=== PATIENT | male | born 1945 | race Caucasian/White ===

== ENCOUNTER 2017-05-11 08:11 | Emergency (ER) | payer OTHER ==
[~2017-05-11] VITALS: Ht 188 cm; Wt 90.4 kg
[~2017-05-11 08:11] MED LIST: AMIO200T4 PO; ASPCH81X PO; LISI-729 PO; METH5TAB5; METO25TA56 PO; WARF7.5T4 PO
[2017-05-11 08:18] VITALS: TEMP 36.7; Ht 188 cm; Wt 90.4 kg
[2017-05-11] MEDS ORDERED: ONDANSETRON INJ 2 MG/ML 2 ML VIAL IM STA (09:00)
[2017-05-11] MEDS ORDERED: MoRPHine SULFATE 4 MG/ML 1 ML CARP\\VIAL IM PRN (09:00)
--- NOTE | 2017-05-11 09:56 | DIAGNOSTIC IMAGING REPORT ---
THORACIC SPINE 3 VIEWS CLINICAL HISTORY: Thoracic back pain. FINDINGS: AP, lateral, and swimmer's views of the thoracic spine are obtained. No prior studies are available for comparison at the time of dictation. The skeletal structures are osteopenic. There is no radiographic evidence of fracture or malalignment. Vertebral body height and alignment are maintained throughout the thoracic spine. There are flowing anterior osteophytes with calcification of the anterior longitudinal ligament consistent with DISH. The transverse processes and pedicles are grossly intact as seen on the frontal view. Mild multilevel degenerative disc space narrowing is observed. The lung parenchyma is clear as imaged. IMPRESSION: 1. No acute bony abnormality is identified involving the thoracic spine. 2. Osteopenia with degenerative change and evidence of DISH as above. Electronically signed by: Loco Paula M.D. 05/11/2017 9:54 AM Dictated Date/Time: 05/11/2017 9:52 AM
[2017-05-11] MEDS ORDERED: HYDR-5688 PO (10:32)
[2017-05-11 10:45] VITALS: BP 124/88; PULSE 80; O2SAT 97
--- NOTE | 2017-05-13 07:11 | EMERGENCY ROOM VISIT NOTE ---
History First contact with patient: 08:33 Chief Complaint: PAIN (GENERALIZED) Stated Complaint: PAIN IN BACK,NECK,ARM History of Present Illness The patient is a 72 year old white male who presents to the Emergency Room with complaints of upper back pain and right shoulder pain that started approximately a week ago. He states initially started in his neck. He thought that it was slowly getting better but became acutely worse yesterday afternoon. He states he could not sleep last night. He thinks he had similar discomfort in 2013 when he had a ruptured disc in his low back. He states he has all of the same symptoms as then. He tried Tylenol and icy hot without significant improvement. There is no trauma. No known injury. His accompanies him today. Pain is 9/10. No chest pain. No abdominal pain. He denies any numbness in his arm. He does complain of some tingling intermittently that extends to his fingers. Review of Systems REVIEW OF SYSTEM: HEENT: No dizziness, visual problems, hearing loss, or tinnitus. There is no difficulty swallowing and no oral lesions are present. PULMONARY: No cough, shortness of breath, sputum production or hemoptysis. CARDIOVASCULAR: No chest pain, palpitations, shortness of breath or peripheral edema. GASTROINTESTINAL: No diarrhea, constipation, nausea, vomiting, or abdominal pain. GENITOURINARY: No dysuria, frequency, urgency or nocturia. NEUROLOGIC: No weakness, muscle tenderness, epilepsy or history of neurological problems. MUSCULOSKELETAL: No history of joint tenderness/swelling. No history of arthritis or arthralgias. SKIN: No rashes or lesions. ENDOCRINE: No history of diabetes, thyroid disorders, or abnormal hair growth. Past Medical/Surgical History Medical Problems: (1) Atrial fibrillation (2) Facial surgery (3) Heart disease (4) HTN (hypertension) Family History FH: cancer FH: heart disease Hypertension Social History Smoking Status: Former Smoker Smokeless Tobacco Use: No Alcohol Use: occasionally Marital Status: Housing Status: lives with significant other Occupation Status: employed Current/Historical Medications Scheduled Aspirin (Aspirin Chewable), 81 MG PO DAILY Lisinopril (Zestril), 5 MG PO QAM Metoprolol Tartrate (Lopressor) (Lopressor), 25 MG PO BID Warfarin Sod (Jantoven), 7.5 MG PO WK Warfarin Sod (Jantoven), 0.5 TAB PO [id number] Scheduled PRN Hydrocodone/Acetaminophen 5MG/325MG ([place] 5MG/325MG), 1-2 TABLET PO Q6 PRN for Pain Allergies Coded Allergies: Prednisone (Verified Allergy, Intermediate, SHORTNESS OF BREATH, 05/11/17) as per patient after steriod shot Physical Exam Vital Signs Date Time Temp Pulse Resp B/P (MAP) Pulse Ox O2 Delivery O2 Flow Rate FiO2 05/11/17 10:45 80 18 124/88 97 05/11/17 10:05 78 18 116/83 97 Room Air 05/11/17 08:18 36.7 88 18 137/88 95 Room Air Pain Rating (0-10): 6.0 Physical Exam Gen.: Well-developed, well-nourished, elderly white male, in obvious discomfort. No acute distress. Sitting on a bed. Alert and oriented. Skin: Warm and dry with good turgor. No rashes or lesions. No ecchymosis or erythema. The patient is not diaphoretic. No abrasions. Heart: Heart RRR. No MGR. Peripheral pulses are 2+. Lungs: Lungs are clear to auscultation. No crackles rhonchi or wheezing. Good air movement. The patient is able to take a deep breath. Musculoskeletal: Patient has focal discomfort with palpation over his upper thoracic spine. There appears to be a slight malrotation of the spinous process at around T5. This may also be localized muscle spasm. He has multiple focal trigger points across the trapezius muscle on the right as well as his supraspinatus. No discomfort with palpation over the teres minor, infraspinatus, latissimus, lumbar spine, or lumbar paraspinal musculature. Intact for flexion, extension, and rotation of the cervical spine, though this does increase his right-sided discomfort. Good range of motion of his right shoulder. There is increased discomfort with shoulder elevation as well as retraction. He sits with a kyphotic posture and rounded shoulder head forward position. Strength is 5/5 for resisted motion of the triceps, biceps, wrist, and digits. There is some weakness of the right-sided rotator cuff musculature secondary to pain. Neurologic: Gross sensation is intact across the upper extremities and trunk by soft touch. Peripheral pulses are 2+. Medical Decision & Procedures ER Provider Diagnostic Interpretation: Thoracic spine x-ray obtained today was read by radiology as negative for acute bony abnormality. He does have osteopenia with degenerative changes and anterior flowing osteophytes with calcification of the anterior longitudinal ligament. Medications Administered Medications (Trade) Dose Ordered Sig/Fernando Route Start Time Stop Time Status Last Admin Dose Admin Morphine Sulfate (MoRPHine SULFATE INJ) 4 mg ONE PRN IM 05/11/17 09:00 05/11/17 11:35 DC 05/11/17 09:19 4 MG Ondansetron HCl (Zofran Inj) 4 mg NOW STAT IM 05/11/17 09:00 05/11/17 09:03 DC 05/11/17 09:19 4 MG ED Course Patient and his were educated regarding today's findings. Conservative care measures were discussed. X-ray imaging was obtained. He was given morphine 4 mg IM and Zofran 4 mg IM with some reduction in his pain. He does take Coumadin and is unable to take traditional anti-inflammatories. I did offer giving him prednisone. He refused, stating it made him feel awful and cause significant shaking. Upon further questioning, patient states he may have injured his back as an early teenager. He has had intermittent back symptoms since his 20s. Possibility of facet syndrome and associated muscle spasm was discussed at length. I do think he would benefit from physical therapy. He will contact his PCP for a referral. He may also benefit from a foam roller to massage his back. Return to the ED for any acute weakness or intractable numbness. Start gentle stretching daily. Prescription was provided for [place] 5 mg to be taken every 6 hours as needed for pain. Driving precautions were given. He may require an MRI in the future to rule out nerve root compression. Medical Decision Possibility of vertebral fracture, degenerative disc disease, nerve root impingement, thoracic outlet syndrome, ruptured disc, cubital tunnel syndrome, and carpal tunnel syndrome were considered. Impression Primary Impression: Chronic thoracic back pain Departure Information Dispostion Home / Self-Care Condition GOOD Prescriptions Hydrocodone/Acetaminophen 5MG/325MG ([place] 5MG/325MG) Tab 1-2 TABLET PO Q6 Y for Pain, #20 TAB For Initial Treatment Prov: Mark Huitron,P.A. 05/11/17 Forms WORK / SCHOOL INSTRUCTIONS, HOME CARE DOCUMENTATION FORM, SPECIAL NARCOTICS INSTRUCTIONS, IMPORTANT VISIT INFORMATION Patient Instructions [facility] reportbrain Additional Instructions [place] one to 2 tablets every 6 hours as needed for pain-no driving Gentle stretching daily-a foam roller may improve your discomfort Follow-up with your PCP this week for a physical therapy referral Return to the ED for any acute weakness or intractable numbness Problem Qualifiers Primary Impression: Chronic thoracic back pain Back pain laterality: right Qualified Codes: M54.6 - Pain in thoracic spine ; G89.29 - Other chronic pain
== END 2017-05-11 10:49 | disposition home or self-care (01) ==
LOC: C.EDB 08:12
DX: M54.6 Pain in thoracic spine (principal); G89.29 Other chronic pain; M25.511 Pain in right shoulder; I48.91 Unspecified atrial fibrillation; I10 Essential (primary) hypertension; Z79.01 Long term (current) use of anticoagulants; Z79.82 Long term (current) use of aspirin; Z79.899 Other long term (current) drug therapy; Z87.891 Personal history of nicotine dependence; Z82.49 Family history of ischemic heart disease and other diseases of the circulatory system

== ENCOUNTER → 2018-06-04 | Outpatient (CLI) | payer OTHER ==
[~2018-06-04] MED LIST changes: +ACET-24 PO; -AMIO200T4 PO; -METH5TAB5; +MULT-506 PO; +RXC5 PO
[2018-06-04 13:42] LABS: INR 1.3 (0.9-1.1)
== END | disposition home or self-care (01) ==
LOC: C.LABSPEC 12:44
PROVIDERS: ATTEND Orthopaedic Surgery Sports Medicine
DX: I48.91 Unspecified atrial fibrillation (principal); Z79.01 Long term (current) use of anticoagulants

== ENCOUNTER 2021-05-23 10:12 | Observation (INO) ==
--- NOTE | 2021-04-25 12:37 | PAT Medication Instructions ---
Medication Instructions Date of Service April 25, 2021 Home Medications aspirin [Aspirin Low-Strength] 81 mg PO QAM metoprolol tartrate 25 mg PO BID lisinopril 5 mg PO QAM multivitamin 1 tab PO QDL flecainide 75 mg PO BID warfarin 0 mg PO UD ASK your prescriber and surgeon warfarin 0 mg PO UD DO NOT take the morning of surgery lisinopril 5 mg PO QAM multivitamin 1 tab PO QDL Take morning of surgery With a small sip of water, OTHERWISE NOTHING TO EAT OR DRINK AFTER MIDNIGHT: metoprolol tartrate 25 mg PO BID flecainide 75 mg PO BID Take evening before surgery metoprolol tartrate 25 mg PO BID flecainide 75 mg PO BID Other Notes If you have any questions please call us at [phone] or [phone] or [phone] or [phone]
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
--- NOTE | 2021-05-19 10:08 | History and Physical Report ---
DATE OF ADMISSION: 05/23/2021 CHIEF COMPLAINT: Progressive left knee pain and discomfort. HISTORY OF PRESENT ILLNESS: A 76-year-old gentleman who presents now for surgical treatment of his l eft knee. He has had a long history of knee problems and actually had his right knee replaced about 3 years ago. He has done well from that. Over the time, the left knee has become more painful. He describes good and bad days, but having more bad days than good days now. He has had injections, whi ch have become less successful over time. Pain is mostly medial, but some global pain. He has got a limited walking tolerance. He has difficulty going up and down steps. He limps more as the day goe s on. He would like to have his left knee fixed. Right knee is doing well. PAST MEDICAL HISTORY: 1. Hypertension. 2. History of AFib, status post ablation, but on Coumadin. 3. Sleep apnea. 4. Arthritis. PAST SURGICAL HISTORY: Includes right knee replacement on 06/02/2018. ALLERGIES: PREDNISONE. CURRENT MEDICATIONS: Include, 1. Aspirin 81 mg. 2. Flecainide twice a day. 3. Lisinopril 5 mg a day. 4. Metoprolol 25 mg a day. 5. Multivitamin. 6. Coumadin. SOCIAL HISTORY: Significant for a 76-year-old male. He is fairly active. Does not smoke. FAMILY HISTORY: Noncontributory. REVIEW OF SYSTEMS: Significant for AFib, status post ablation. By EKG, he is in sinus rhythm. Crow es any chest pain or shortness of breath. No history of DVT or PE. No bleeding problems. PHYSICAL EXAMINATION: GENERAL: Shows a pleasant, healthy appearing elderly male. HEENT: Benign. NECK: Supple, no lymphadenopathy. LUNGS: Clear to auscultation. HEART: Regular rate and rhythm. ABDOMEN: Soft, nontender, nondistended. EXTREMITIES: Grossly neurovascularly intact except as follows: Examination of the left knee reveale d a patient who ambulates independently. Just a slight bit of a limp. He has got varus alignment to his knee with a slight bit of a varus thrust. He is tender over the medial joint line. Small knee effusion. Range of motion is near full extension to 125 degrees of flexion. There is no instability . Examination of the right knee reveals a well-healed incision. No swelling. Range of motion 0-125 . Good straight leg raise. X-RAYS: X-rays of the left knee reveal advanced left knee DJD. He has got complete loss of his medi al joint space. He has got osteophytes medially. Subchondral sclerosis. ASSESSMENT: A 76-year-old gentleman with history of atrial fibrillation in the past, currently in s inus rhythm, but on Coumadin, now 3 years out from a right knee replacement with advanced left knee d egenerative joint disease. He has failed conservative treatment and would like to have his left knee replaced. PLAN: We will take him to the operating room and do left total knee replacement. Risks and benefits of this procedure were explained to the patient and include but not limited to DVT, PE, , infec tion, neurological injury, vascular injury, bleeding problem, pain, limited range of motion, stiffnes s, failure to relieve his symptoms, incomplete relief of symptoms, need for further surgery in the fu ture, fracture, leg length inequality, nerve palsy, etc. The patient understands and desires to proc eed. Informed consent was obtained. He stopped his Coumadin 5 days preop. Does not require Lovenox bridge. We will start him back on Co umadin immediately postop. He will hold his lisinopril on the morning of surgery. He should take hi s metoprolol. I will see him back 2 weeks out postop. Job ID: [id number]
[~2021-05-23 10:12] MED LIST changes: -ACET-24 PO; +ACETAMINOPHEN 500 MG TAB PO SCH; -ASPCH81X PO; +BUPIVACAINE 0.25% 30 ML VIAL ONE; +BUPIVACAINE 0.5 % 5 MG/1 ML PF 10ML VIAL ONE; +BUPIVACAINE LIPOSOME/PF 266 MG, BUPIVACAINE/EPINEPHRINE 50 ML, SODIUM CHLORIDE 0.9% 30 ... INFIL SCH; +FAMOTIDINE 20 MG TAB PO SCH; +GABAPENTIN 300 MG CAP PO SCH; -LISI-729 PO; +LR 500ML BOLUS, THEN 15ML/HR IV SCH; +LR 60ML/HR IV SCH; -METO25TA56 PO; +METOCLOPRAMIDE HCL 10 MG TABLET PO SCH; -MULT-506 PO; -RXC5 PO; +TRANEXAMIC ACID 1,000 MG **IV Intra-op IV SCH; -WARF7.5T4 PO; +ceFAZolin 2000MG 2,000 MG/15 ML SYR IV SCH
--- NOTE | 2021-05-23 10:14 | History & Physical Bridge Note ---
Date of Service May 23, 2021 History & Physical Bridge Note I have examined the patient, reviewed the History & Physical and in the interval since the performance of the History & Physical I have noted the following changes of clinical significance: no changes noted
[2021-05-23] MEDS ORDERED: MIDAZOLAM HCL 1 MG/ML 2ML VIAL ONE (10:49)
[2021-05-23] MEDS ORDERED: KETAMINE 50 MG/5 ML SYRINGE ONE (10:49)
[2021-05-23 11:10] LABS: INR 1.3 (0.9-1.1); Partial Thromboplastin Ratio 1.1; Partial Thromboplastin Time 27.7 Seconds (21.0-31.0)
[2021-05-23] MEDS ORDERED: SODIUM CHLORIDE 0.9% PF 50 ML VIAL ONE (11:11)
[2021-05-23] MEDS ORDERED: BUPIVACAINE LIPOSOME 1.3% 266 MG/20 ML VIAL ONE (11:11)
[2021-05-23] MEDS ORDERED: BUPIVACAINE 0.25% 30 ML VIAL ONE ×2 (11:12→11:28)
[2021-05-23] MEDS ORDERED: EPINEPHrine INJ 1 MG/ML AMP ONE (11:12)
[2021-05-23] MEDS ORDERED: fentaNYL citrate 100 MCG/2 ML VIAL IV PRN (11:38)
[2021-05-23] MEDS ORDERED: ePHEDrine sulfate 50 MG/ML AMP IV PRN (11:38)
[2021-05-23] MEDS ORDERED: ATROPINE SULFATE 0.1 MG/ML 10ML SYR IV PRN (11:38)
[2021-05-23] MEDS ORDERED: ONDANSETRON INJ 2 MG/ML 2 ML VIAL IV PRN ×2 (11:38→16:01)
[2021-05-23] MEDS ORDERED: LIDOCAINE 2% 2 ML VIAL/AMP(20MG/ML) INFIL ONE (12:40)
[2021-05-23] MEDS ORDERED: PROPOFOL IV EMULSION 10 MG/ML 20 ML VIAL IV ONE ×3 (12:40→13:49)
[2021-05-23] MEDS ORDERED: GLYCOPYRROLATE 0.2 MG/ML VIAL ONE (12:40)
[2021-05-23] MEDS ORDERED: ONDANSETRON INJ 2 MG/ML 2 ML VIAL ONE (12:40)
[2021-05-23] MEDS ORDERED: PHENYLEPHRINE 100MCG/ML 5ML SYR ONE (12:41)
--- NOTE | 2021-05-23 14:31 | Operative Report ---
Post Operative Report Pre & Post Diagnosis Operation Date: 05/23/21 12:30 Pre-Op Diagnosis: Left Knee Degenerative Joint Disease Post-Op Diagnosis: Left Knee Degenerative Joint Disease I identified the patient and participated in the time-out.: Yes Procedure Operation Date: 05/23/21 12:30 Actual Procedures p Left Total Knee Arthroplasty(Left) - Ramon Perrin MD Surgeon Ramon Perrin MD Dispatcher Service Or Work DAVIAN Robison Estimated Blood Loss 50 Findings Consistent with Post-Op Diagnosis Operative findings were advanced left knee DJD. Patient extensive grade 4 [id number] disease in all 3 compartments. He had varus deformity to his knee. Moderate sized knee effusion. Fluids 1600 cc Specimens Left knee sent for pathology. Drains None Anesthesia Type Spinal MAC Complications none Disposition Accompanied Patient To Recovery: No Indications Patient is a 76-year-old gentleman who has a long history of bilateral knee pain discomfort. Has been through extensive conservative treatment the past which became less successful over time. He had his right knee replaced about 3 years ago and is done well from this. Continued be limited by his left knee pain discomfort and elected proceed with left total knee arthroplasty. Description of Procedure Operative implants consist of: 1. Biomet Vanguard size 75 left posterior stabilized femoral component. 2. Biomet size 83 tibial tray. 3. 10 mm posterior stabilized polyethylene insert. 4. 34 x 8 and half all polypatella. The patient was taken to the operating, identified, and placed on the operating table supine position but all contact areas were properly padded. IV antibiotics 5 by anesthesia team. A spinal anesthetic and abductor canal block had provided holding area. Richards catheter was placed in sterile fashion. Left thigh turn was then placed in the left lower extremities and prepped and draped in usual sterile fashion. The left leg was elevated exsanguinated with use of an Esmarch and turns placed at 300 mmHg. An anterior approach to the left knee was then performed to longitudinal incision centered over the patella. Sharp dissection was carried through subcutaneous tissue down the extensor mechanism. A medial parapatellar arthrotomy incision was made. Some subperiosteal dissection was carried out medially. The fat pad was resected from each patella tendon. Lateral patellofemoral ligament was released. Patella subluxated laterally knee was flexed. The osteophyte taken off distal femur. ACL and PCL were then released from distal femur and the tibia subluxated anteriorly. The external tibial alignment jig was then placed in the interface the tibia and adjusted 16 mm medially. Proximal tibial cut was made remove about a millimeter bone from most deficient aspect medial tibial plateau. Some osteophytes taken off medial and posterior medially. Tibia sized to a size 83. Attention drawn the femur. The distal femur was entered the sharp drill bit intramedullary canal was suction. A left 6 degree valgus cutting guide was placed. Distal femoral cutting block was pinned in place. Distal femoral cut was made to take an additional 3 mm of bone off distal femur. The femur was then sized to a size 75. Sized almost exactly the 75. The AP cutting block was pinned parallel to the epicondylar axis which was 5 degrees of external rotation. The anterior cut, anterior chamfer, posterior cut, posterior chamfer cuts were made. Box cutting guide was then placed in just slight lateral and the box cut was made. The knee was flexed. The remnants of the medial and lateral menisci were excised. The osteophytes were taken off the posterior aspect of femur. A trial femoral component was placed. The tibial tray was pinned in maximum external rotation and the drill and stem punch were used to create defect in proximal tibia for the tibial tray. Knee was then trialed and the 10 mm insert fit most appropriately. Attention drawn the patella. Patella was cleaned of all soft tissues. Patella thickness measured 24 mm in thickness was cut down to 15. Was sized to a size 34 patella. The lug holes were drilled for the 34 patella. The lateral osteophyte is moved. Patella button was placed. Knee was taken through range of motion patella tracked nicely with no thumbs test. Attention drawn to place the permanent components. All trial components were removed. Bone plug was placed in the distal femur limit blood loss put a double batch [place] G cement was mixed. A Biomet Vanguard size 75 left posterior stabilized femoral component, size 83 tibial tray, 10 mm posterior stabilized polyethylene insert, and 34 x 18 F all polypatella were then cemented in place. Knee was brought out in full extension until cement hardened. Final cement check was then performed. Pericapsular tissues were injected with total 100 cc of combination of 20 cc of Exparel, 30 cc normal saline, 50 cc of quarter percent Marcaine with epinephrine. Patient did receive 1 g tranexamic acid. The tourniquet was then let down for final tourniquet time of 60 minutes. Hemostasis assured use electrocautery. The wound was once again irrigated. The extensor mechanism was repaired with combination 1 PDS suture #1 Vicryl suture in [id number] fashion. Extensor mechanism checked found to be intact the subcutaneous tissue then closed with 2 Dexon suture in a buried interrupted fashion. Skin was closed skin richard. Leg was then cleaned dried and a sterile dressing was Xeroform, 4 x 4's, sterile cast padding, Sam bandage were applied. Patient then transferred to the recovery room in stable condition. Patient tolerated no complications. Jacob Robison, my physician special education educational assistant, was present for the entire procedure. His assistance was essential and required for appropriate patient positioning, prepping and draping, surgical exposure, performing the technical details of the operation, placement the implants, closure of the wound, and placement of the sterile bandage. I attest to the content of the Intraoperative Record and any orders documented therein. Any exceptions are noted below.
--- NOTE | 2021-05-23 14:58 | XRay Report ---
XR knee LT 1 or 2V routine HISTORY: 76 years-old Male Surgical Post Op [knee total joint arthroplasty COMPARISON: 09/02/2020 TECHNIQUE: 2 views of the left knee FINDINGS: Left knee, joint arthroplasty and patella resurfacing. Anterior midline skin richard are noted along with expected postoperative soft tissue swelling with deep tissue air. No acute fracture, malalignmen t or unexpected opaque foreign body identified. IMPRESSION: Left knee total joint arthroplasty and patella resurfacing with expected postoperative ch anges. ACT 112: Negative or not required by law. The above report was generated using voice recognition software. It may contain grammatical, syntax o r spelling errors. Electronically signed by: Ke Valerio M.D. 05/23/2021 2:56 PM
[2021-05-23] MEDS ORDERED: bisacodyL 10 MG SUPP PR PRN (16:01)
[2021-05-23] MEDS ORDERED: WARFARIN SOD 7.5 MG TAB PO ONE (16:01)
[2021-05-23] MEDS ORDERED: ALUMINUM/MAGNESIUM SUSP 30 ML UDC PO PRN (16:01)
[2021-05-23] MEDS ORDERED: HYDROmorphone INJ 0.5 MG/0.5 ML SYR IV PRN (16:01)
[2021-05-23] MEDS ORDERED: TAMSULOSIN HCL 0.4 MG CAP PO PRN (16:01)
[2021-05-23] MEDS ORDERED: METOCLOPRAMIDE HCL INJ 5 MG/ML 2 ML VIAL IV PRN (16:01)
[2021-05-23] MEDS ORDERED: oxyCODONE HCL IR 5 MG TAB (IMMEDIATE RELEASE) PO PRN (16:01)
[2021-05-23] MEDS ORDERED: NALOXONE HCL 0.4 MG/1 ML VIAL/CARP IV PRN (16:01)
[2021-05-23] MEDS ORDERED: MAGNESIUM HYDROXIDE SUSP 30 ML UDC PO PRN (16:01)
[2021-05-23] MEDS: SODIUM CHLORIDE 0.9% 1000ML 1,000 ML IV SCH (16:30)
--- NOTE | 2021-05-23 16:44 | Anesthesiology Progress Note ---
Date of Service May 23, 2021 Anesthesia Post Procedure Vital Signs Vital Signs: Temp Pulse Pulse Resp BP Pulse Ox 05/23/21 16:30 70 16 147/83 H 96 05/23/21 16:01 36.5 C 72 18 147/80 H 96 05/23/21 15:40 75 16 121/82 98 05/23/21 15:25 36.3 C L 73 16 125/72 95 05/23/21 15:15 72 14 126/78 95 05/23/21 15:05 71 15 117/70 97 05/23/21 14:55 36.3 C L 72 16 121/75 94 05/23/21 14:45 71 14 120/75 95 05/23/21 14:35 75 14 121/71 97 05/23/21 14:25 74 12 109/72 98 05/23/21 14:16 36.0 C L 71 16 115/76 97 05/23/21 11:28 36.7 C 62 18 122/93 92 05/23/21 10:35 36.6 C 64 18 140/94 94 Transfer of Care Handoff Completed per policy Notes Mental Status: alert / awake / arousable and participated in evaluation Patient Amnestic to Procedure: Yes Nausea / Vomiting: adequately controlled Pain: adequately controlled Airway Patency, RR, SpO2: stable & adequate BP & HR: stable & adequate Hydration State: stable & adequate Neuraxial Anesthesia: was administered and sensory block is resolving Anesthetic Complications: no major complications apparent
[2021-05-23] MEDS: KETOROLAC TROMETHAMINE 15 MG/ML VIAL IV SCH (17:31)
[2021-05-23] MEDS: ASCORBIC ACID 500 MG TAB PO SCH (17:31)
[2021-05-23] MEDS: ceFAZolin 2000MG 2,000 MG/15 ML SYR IV SCH (20:10)
[2021-05-23] MEDS: TAPENTADOL HCL ER 50 MG TABCR PO SCH (20:10)
[2021-05-23] MEDS: ACETAMINOPHEN 500 MG TAB PO SCH (20:10)
[2021-05-23] MEDS: DOCUSATE SODIUM 100 MG CAP PO SCH (20:11)
[2021-05-23] MEDS: METOPROLOL TARTRATE 25 MG TAB PO SCH (20:11)
[2021-05-23] MEDS: FLECAINIDE ACETATE 100 MG TABLET PO SCH (20:12)
[2021-05-23] MEDS ORDERED: SENNA 8.6 MG TAB PO SCH (21:00)
[2021-05-24] MEDS: KETOROLAC TROMETHAMINE 15 MG/ML VIAL IV SCH ×2 (00:05→05:35)
[2021-05-24] MEDS: SODIUM CHLORIDE 0.9% 1000ML 1,000 ML IV SCH (00:06)
[2021-05-24] MEDS: ceFAZolin 2000MG 2,000 MG/15 ML SYR IV SCH (05:34)
[2021-05-24] MEDS: ACETAMINOPHEN 500 MG TAB PO SCH (05:35)
[2021-05-24 06:25] LABS: Hemoglobin 13.7 g/dL (14.0-18.0); Mean Corpuscular Hemoglobin 35.5 pg (25-34); Mean Corpuscular Hgb Conc 34.3 g/dL (32-36); Mean Corpuscular Volume 103.6 fL (80-100); Mean Platelet Volume 10.5 fL (7.4-10.4); Platelet Count 143 K/uL (130-400); RDW Coefficient of Variation 12.8 % (11.5-14.5); RDW Standard Deviation 48.2 fL (36.4-46.3); Red Blood Count 3.86 M/uL (4.7-6.1); White Blood Count 7.51 K/uL (4.8-10.8)
[2021-05-24 06:41] LABS: INR 1.3 (0.9-1.1); Prothrombin Time 13.2 Seconds (9.0-12.0)
[2021-05-24 06:56] LABS: BUN Creatinine Ratio 12.1 (10-20); Calcium 7.9 mg/dl (8.5-10.1); Creatinine Clr Calc Pharmacy 78.5 ml/min; Est GFR (African American) 89.9 ml/min; Est GFR (Non-African American) 77.6 ml/min; Potassium 3.6 mmol/L (3.5-5.1)
[2021-05-24] MEDS ORDERED: WARFARIN SOD 7.5 MG TAB PO ONE (08:01)
[2021-05-24] MEDS: ASCORBIC ACID 500 MG TAB PO SCH (08:23)
[2021-05-24] MEDS: METOPROLOL TARTRATE 25 MG TAB PO SCH (08:23)
[2021-05-24] MEDS: DOCUSATE SODIUM 100 MG CAP PO SCH (08:23)
[2021-05-24] MEDS: TAPENTADOL HCL ER 50 MG TABCR PO SCH (08:30)
[2021-05-24] MEDS: FLECAINIDE ACETATE 100 MG TABLET PO SCH (08:30)
--- NOTE | 2021-05-24 08:48 | Progress Notes ---
DATE OF SERVICE: 05/24/2021. SUBJECTIVE: A 76-year-old gentleman postop day 1 from a left knee replacement. He has done quite we ll this morning. Had a good night last night. Pain is controlled. No chest pain or shortness of br eath. Not feeling dizzy or lightheaded. OBJECTIVE: VITAL SIGNS: Temperature 36.8. Vital signs stable. PHYSICAL EXAMINATION. GENERAL: Shows a pleasant middle-aged male. He is sitting up on bed looks quite comfortable this mo rning. LUNGS: Clear to auscultation. HEART: Regular rate and rhythm. ABDOMEN: Soft, nontender, nondistended. EXTREMITIES: Grossly neurovascularly intact except as follows. Examination of the left lower extremity reveals the leg to be well aligned. His dressing is clean, d ry and intact. He can dorsiflex and plantarflex his foot appropriately. He is neurologically intact . LABORATORY DATA: Hemoglobin 13.7, hematocrit 40.0. Electrolytes are stable. His INR is 1.3. ASSESSMENT: A 76-year-old gentleman postop day 1 from left knee replacement, doing pretty well. His pain is controlled. He is neurologically intact. PLAN: 1. DVT prophylaxis include thigh-high TEDs, SCDs and back on his Coumadin. We will dose him today b efore discharge. 2. PT/OT. He can weight bear as tolerated. Left total knee protocol. 3. Pain control, doing okay with current pain regimen. 4. Disposition: Plan to discharge to home with some home health likely later today if his pain is co ntrolled and does okay in therapy. Job ID: [id number]
[2021-05-24] MEDS ORDERED: ASPIRIN 81 MG ECTAB PO SCH (09:00)
[2021-05-24] MEDS ORDERED: lisinopril 5 MG TAB PO SCH (09:00)
[2021-05-24] MEDS ORDERED: MULTIVITAMIN TAB PO SCH ×2 (09:00→11:30)
--- NOTE | 2021-05-29 06:31 | Discharge Summary ---
Date of Service May 29, 2021 Discharge Data Procedures Performed Operation Date: 05/23/21 12:30 Actual Procedures p Left Total Knee Arthroplasty(Left) - Ramon Perrin MD Hospital Course (1) Status post total left knee replacement: This is a 76 year old patient admitted on 05/23/21 and underwent total knee arthroplasty. He tolerated the procedure well and there were no complications. Transferred to the PACU post op and later to the orthopedic floor for further care. He was given ancef for antibiotic prophylaxis. He was also given LEV stockings, SCDs, and coumadin for DVT prophylaxis. Hemoglobin, hematocrit, and vital signs were monitored during his hospital stay and remained stable. Did not require any blood transfusions. There were no complications during his hospital stay. By post op day #1 the patient was tolerating a regular diet, pain was reasonably controlled with oral pain medicine, and he was participating in physical therapy. On post op day #1 the patient was discharged home and set up with home health care. He was given printed discharge instructions including prescriptions for extra strength tylenol and oxycodone. Continue physical therapy, weight bearing as tolerated. Continue LEV stockings. Follow up approximately 2 weeks post op or sooner if there are problems or concerns. Coding Level of Care Code None Diagnoses Status post total left knee replacement Z96.652
== END 2021-05-24 11:28 | disposition home health service (06) ==
LOC: ASU 10:12 → 3E 10:12

== ENCOUNTER 2025-10-25 07:52 | Inpatient (IN) ==
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
[2025-10-25 09:01] LABS: Hematocrit (blood only) 51.2 % (42.0-52.0); Hemoglobin 18.2 g/dL (14.0-18.0); Immature Granulocytes # (auto) 0.02 K/uL (0.01-0.20); Immature Granulocytes % (auto) 0.4 %; Mean Corpuscular Hemoglobin 35.4 pg (25.0-34.0); Mean Corpuscular Volume 99.6 fL (80.0-100.0); Platelet Count 174 K/uL (130-400); RDW Standard Deviation 46.2 fL (36.4-46.3); Red Blood Count 5.14 M/uL (4.70-6.10); White Blood Count 4.98 K/ul (4.8-10.8)
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
[2025-10-25 09:27] LABS: Alanine Aminotransferase 32.0 U/L (7-52); Albumin Globulin Ratio 1.1 (0.9-2); Albumin Level 4.2 gm/dl (3.4-5.0); Alkaline Phosphatase 83.0 U/L (34-104); Anion Gap 5.0 (3-11); Bilirubin,Total 1.2 mg/dl (0.2-1.0); Blood Urea Nitrogen 6.0 mg/dl (6-23); Calcium 9.4 mg/dl (8.6-10.3); Carbon Dioxide 29.0 mmol/L (21-32); Chloride 104.0 mmol/L (98-107); Creatinine Clr Calc Pharmacy 85.3 ml/min; Globulin 4.0 gm/dl (2.5-4.0); Glucose 100.0 mg/dl (70-99(Fasting)); Magnesium 2.0 mg/dl (1.7-2.4); Potassium 4.0 mmol/L (3.5-5.1); Sodium 138.0 mmol/L (136-145); Total Protein 8.2 gm/dl (6.0-8.3)
[2025-10-25 09:33] LABS: INR 2.7 (0.9-1.1); Prothrombin Time 26.7 Seconds (9.0-12.0)
[2025-10-25] MEDS ORDERED: ACETAMINOPHEN 325 MG TAB PO PRN (10:35)
[2025-10-25] MEDS ORDERED: ONDANSETRON INJ 2 MG/ML 2 ML VIAL IV PRN (10:35)
[2025-10-25] MEDS ORDERED: LORazepam 1 MG TAB PO PRN (11:27)
[2025-10-25] MEDS: MAGNESIUM OXIDE 400 MG TAB PO SCH (11:47)
[2025-10-25] MEDS: MULTIVITAMIN TAB PO SCH (11:47)
[2025-10-25] MEDS: METOPROLOL SUCC 50MG EXT REL TAB PO SCH (12:41)
[2025-10-25] MEDS: DOFETILIDE 125 MCG CAPSULE PO ONE (12:42)
--- NOTE | 2025-10-25 13:08 | XCELERA ---
[id number]
[2025-10-25] MEDS: GABAPENTIN 300 MG CAP PO SCH (15:04)
[2025-10-25] MEDS: WARFARIN SOD 1.25 MG TAB PO SCH (17:07)
[2025-10-25] MEDS: DOFETILIDE 125 MCG CAPSULE PO SCH (20:58)
[2025-10-25] MEDS ORDERED: DOFETILIDE 125 MCG CAPSULE PO SCH (21:00)
[2025-10-26 06:14] LABS: Hematocrit (blood only) 45.2 % (42.0-52.0); Hemoglobin 16.3 g/dL (14.0-18.0); Mean Corpuscular Hemoglobin 36.2 pg (25.0-34.0); Mean Corpuscular Volume 100.4 fL (80.0-100.0); Platelet Count 135 K/uL (130-400); RDW Standard Deviation 45.6 fL (36.4-46.3); Red Blood Count 4.50 M/uL (4.70-6.10); White Blood Count 4.24 K/ul (4.8-10.8)
[2025-10-26 06:40] LABS: Alanine Aminotransferase 27.0 U/L (7-52); Albumin Globulin Ratio 1.1 (0.9-2); Albumin Level 3.5 gm/dl (3.4-5.0); Alkaline Phosphatase 64.0 U/L (34-104); Anion Gap 6.0 (3-11); Bilirubin,Total 1.5 mg/dl (0.2-1.0); Blood Urea Nitrogen 8.0 mg/dl (6-23); Calcium 8.7 mg/dl (8.6-10.3); Carbon Dioxide 27.0 mmol/L (21-32); Chloride 106.0 mmol/L (98-107); Creatinine Clr Calc Pharmacy 90.7 ml/min; Globulin 3.1 gm/dl (2.5-4.0); Glucose 113.0 mg/dl (70-99(Fasting)); Magnesium 1.9 mg/dl (1.7-2.4); Potassium 4.0 mmol/L (3.5-5.1); Sodium 139.0 mmol/L (136-145); Total Protein 6.6 gm/dl (6.0-8.3)
[2025-10-26 06:51] LABS: INR 2.2 (0.9-1.1); Prothrombin Time 22.1 Seconds (9.0-12.0)
[2025-10-26] MEDS: ASPIRIN 81 MG ECTAB PO SCH (09:29)
--- NOTE | 2025-10-26 11:10 | Hospitalist Progress Note ---
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 No chest pain. He is sensitive to palpitations and has atrial fibrillation. No shortness of breath. Physical Exam Physical Exam: Constitutional: Alert, nontoxic HEENT: Mucous membranes moist. Lungs: Clear to auscultation, decreased, no wheezes rales or rhonchi CV: S1-S2, irregular Abdomen: Soft, nontender, nondistended Extremities: No significant edema Neuro: No focal deficits Psych: Cooperative, normal mood Results & Data Results & Data Vital Signs (Past 12 Hours) Vital Signs Temp Pulse Pulse Resp BP Pulse Ox O2 Del Method 10/26/25 10:32 Room Air 10/26/25 07:08 36.6 C 73 16 146/89 H 92 Room Air 10/26/25 07:00 71 10/26/25 02:59 36.6 C 65 18 131/83 96 Room Air 10/25/25 23:10 36.6 C 69 18 136/88 93 Room Air Diagnostic Findings Reviewed imaging, laboratory and diagnostic studies. Pertinent findings as below. WBCs 4.2 Hemoglobin 16.3 Platelets of 135 INR 2.2 Electrolytes within normal range Creatinine 0.78 Personally reviewed EKG from this morning, sinus rhythm. Prolonged QT 507 ms
--- NOTE | 2025-10-26 11:46 | Cardiology Progress Note ---
Date of Service October 26, 2025 Assessment & Plan (1) Paroxysmal atrial fibrillation with rapid ventricular response: (2) HTN (hypertension): (3) Aortic root enlargement: (4) correction current use of anticoagulant: Plan - Admit for Tikosyn initiation - Stopped sotalol two days prior to Tikosyn. - Start Tikosyn in hospital with EKG monitoring. - Administer metoprolol 50 mg twice daily starting two days before stopping sotalol. - Consider cardioversion if atrial fibrillation remains on Tikosyn - Perform echocardiogram during hospital stay to assess aortic size. - Discussed AV junction ablation with pacemaker if Tikosyn is ineffective. 10/26/2025 1. Paroxysmal atrial fibrillation with prior multiple therapies including ablation and failure or intolerance of amiodarone, sotalol. Beginning Tikosyn load at 250 mcg twice per day. Plan to continue Continue metoprolol succinate 50 mg twice per day Will increase lisinopril to 2.5 mg twice per day for hypertension control Admission and Anticipated Discharge Date Admission Date: October 25, 2025 Subjective Patient seen and personally examined. Telemetry reviewed. Telemetry demonstrated brief atrial fibrillation earlier this morning but predominately maintaining sinus rhythm. QT mildly prolonged but consistent with prior antiarrhythmic therapies. No cardiac complaints Blood pressure mildly elevated Review of Systems Review of Systems: All systems reviewed & are unremarkable except as noted in Subjective Physical Exam Constitutional: + thin; no acute distress Eyes: PERRL, conjunctivae normal, anicteric sclerae ENMT: external ear and nose normal, oropharynx normal Neck: trachea midline, no thyromegaly Respiratory: normal respiratory effort, lungs clear to auscultation Cardiovascular: Rate/Rhythm: + tachycardic and + irregularly irregular Heart Sounds: normal S1 and normal S2; no murmur Vessels: no JVD Extremities: no edema Gastrointestinal (Abdomen): normal bowel sounds, soft, nontender, no hepatosplenomegaly Musculoskeletal: no cyanosis or clubbing, extremities motor strength 5/5 Results & Data Vital Signs (Past 12 Hours) Vital Signs Temp Pulse Pulse Resp BP Pulse Ox O2 Del Method 10/26/25 11:15 36.6 C 68 16 149/91 H 94 Room Air 10/26/25 10:32 Room Air 10/26/25 07:08 36.6 C 73 16 146/89 H 92 Room Air 10/26/25 07:00 71 12/17/25 02:59 36.6 C 65 18 131/83 96 Room Air Laboratory Results Laboratory Results - last 24 hr 10/26/25 05:26 WBC 4.24 L RBC 4.50 L Hgb 16.3 Hct 45.2 MCV 100.4 H MCH 36.2 H MCHC 36.1 H RDW Std Deviation 45.6 RDW Coeff of Deborah 12.3 Plt Count 135 MPV 10.7 PT 22.1 H INR 2.2 H Sodium 139 Potassium 4.0 Chloride 106 Carbon Dioxide 27 Anion Gap 6 BUN 8 Creatinine 0.78 Est Cr Clr Drug Dosing 90.7 eGFR 91.28 BUN/Creatinine Ratio 10.3 Glucose 113 H Calcium 8.7 Magnesium 1.9 Total Bilirubin 1.5 H AST 40 H ALT 27 Alkaline Phosphatase 64 Total Protein 6.6 Albumin 3.5 Globulin 3.1 Albumin/Globulin Ratio 1.1 PG Care Time/CCT Total # of Minutes Spent Total Time Spent with Patient: Total time spent is greater than 50% in coordination of care (as documented) at patient's floor/unit and/or counseling patient: Coding Level of Care Code 74373 SUB INP/OBS CARE 3/50MIN Diagnoses Paroxysmal atrial fibrillation with rapid ventricular response I48.0 HTN (hypertension) I10 Aortic root enlargement 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
--- NOTE | 2025-10-27 05:59 | Electrocardiogram Report ---
Test Reason : Blood Pressure : */* mmHG Vent. Rate : 106 BPM Atrial Rate : * BPM P-R Int : 220 ms QRS Dur : 112 ms QT Int : 326 ms P-R-T Axes : * -35 44 degrees QTcB Int : 433 ms Sinus tachycardia with 1st degree A-V block with frequent , and consecutive Premature atrial complexe s Left axis deviation Cannot rule out Anterior infarct , age undetermined Abnormal ECG When compared with ECG of 07-Sep-2025 07:07, Premature atrial complexes are now Present Minimal criteria for Anterior infarct are now Present QT has shortened Confirmed by Hadley Leach ([id number]) on 10/27/2025 5:58:41 AM Referred By: Brnenan Gardiner Confirmed By: Hadley Leach
--- NOTE | 2025-10-27 06:00 | Electrocardiogram Report ---
Test Reason : Blood Pressure : */* mmHG Vent. Rate : 71 BPM Atrial Rate : 71 BPM P-R Int : 232 ms QRS Dur : 114 ms QT Int : 472 ms P-R-T Axes : 16 -37 11 degrees QTcB Int : 512 ms Sinus rhythm with 1st degree A-V block Left axis deviation Prolonged QT Abnormal ECG When compared with ECG of 25-Oct-2025 11:33, Premature supraventricular complexes are no longer Present QT has lengthened Confirmed by Hadley Leach ([id number]) on 10/27/2025 6:00:12 AM Referred By: Brennan Gardiner Confirmed By: Hadley Leach
--- NOTE | 2025-10-27 06:00 | Electrocardiogram Report ---
Test Reason : Blood Pressure : */* mmHG Vent. Rate : 79 BPM Atrial Rate : 79 BPM P-R Int : 238 ms QRS Dur : 94 ms QT Int : 394 ms P-R-T Axes : * -38 1 degrees QTcB Int : 451 ms Sinus rhythm with 1st degree A-V block with Premature supraventricular complexes Left axis deviation Minimal voltage criteria for LVH, may be normal variant ( R in aVL ) Cannot rule out Inferior infarct , age undetermined Abnormal ECG When compared with ECG of 25-Oct-2025 08:04, No significant change Confirmed by Hadley Leach ([id number]) on 10/27/2025 5:59:50 AM Referred By: Brennan Gardiner Confirmed By: Hadley Leach
--- NOTE | 2025-10-27 06:01 | Electrocardiogram Report ---
Test Reason : Blood Pressure : */* mmHG Vent. Rate : 70 BPM Atrial Rate : 70 BPM P-R Int : 248 ms QRS Dur : 112 ms QT Int : 470 ms P-R-T Axes : 63 -36 -4 degrees QTcB Int : 507 ms Sinus rhythm with 1st degree A-V block Left axis deviation Prolonged QT Abnormal ECG When compared with ECG of 25-Oct-2025 23:05, No significant change was found Confirmed by Hadley Leach ([id number]) on 10/27/2025 6:01:26 AM Referred By: Brennan Gardiner Confirmed By: Hadley Leach
--- NOTE | 2025-10-27 06:01 | Electrocardiogram Report ---
Test Reason : Blood Pressure : */* mmHG Vent. Rate : 68 BPM Atrial Rate : 68 BPM P-R Int : 244 ms QRS Dur : 108 ms QT Int : 492 ms P-R-T Axes : 49 -39 -10 degrees QTcB Int : 524 ms Sinus rhythm with 1st degree A-V block Left axis deviation Prolonged QT Abnormal ECG When compared with ECG of 25-Oct-2025 15:49, No significant change was found Confirmed by Hadley Leach ([id number]) on 10/27/2025 6:01:14 AM Referred By: Brennan Gardiner Confirmed By: Hadley Leach
--- NOTE | 2025-10-27 06:02 | Electrocardiogram Report ---
Test Reason : Blood Pressure : */* mmHG Vent. Rate : 66 BPM Atrial Rate : 66 BPM P-R Int : 252 ms QRS Dur : 108 ms QT Int : 482 ms P-R-T Axes : 116 -36 0 degrees QTcB Int : 505 ms Sinus rhythm with 1st degree A-V block Left axis deviation Prolonged QT Abnormal ECG When compared with ECG of 26-Oct-2025 05:46, No significant change was found Confirmed by Hadley Leach ([id number]) on 10/27/2025 6:01:56 AM Referred By: Brennan Gardiner Confirmed By: Hadley Leach
[2025-10-27 06:48] LABS: INR 1.9 (0.9-1.1); Prothrombin Time 19.3 Seconds (9.0-12.0)
--- NOTE | 2025-10-27 10:36 | Hospitalist Progress Note ---
Date of Service October 27, 2025 Assessment & Plan (1) Atrial fibrillation with rapid ventricular response: (2) HTN (hypertension): (3) [facility] current use of anticoagulant: (4) Sleep apnea: (5) Peripheral neuropathy: (6) Prolonged Q-T interval on ECG: (7) Paroxysmal atrial fibrillation with rapid ventricular response: (8) Daily consumption of alcohol: Plan 80-year-old maleWho has significant past medical history of symptomatic PAF status post PVI ablation in September 2016, recurrent PAF/flutter status post catheter ablation on August 23, 2025, HTN, DEVEN unable to tolerate CPAP, 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 Cardiology evaluated and initiated Tikosyn Paroxysmal Afib but currently in sinus Sotalol was stopped two days prior to Tikosyn Tolerating Tikosyn 250mg BID. 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 INR 1.9 today Code status- Full DVT ppx - Warfarin I spent a total of 45 minutes coordinating, documenting and providing care for this patient excluding time spent in performance of separately billed services Admission and Anticipated Discharge Date Admission Date: October 25, 2025 Subjective Patient seen and examined at bedside Reports feeling better this AM No complaints on ROS Tele review showed brief Afib and change to sinus around 8:03AM Physical Exam Constitutional: + well hydrated; no acute distress Eyes: PERRL, conjunctivae normal, anicteric sclerae ENMT: external ear and nose normal, oropharynx normal Respiratory: normal respiratory effort, lungs clear to auscultation Cardiovascular: Rate/Rhythm: regular rate and regular rhythm Gastrointestinal (Abdomen): normal bowel sounds, soft, nontender, no hepatosplenomegaly Musculoskeletal: No pedal edema Neurologic: PERRL, EOMI, accommodation nl, no face palsy, no dysarthria Psychiatric: A+Ox3, euthymic affect Results & Data Results & Data Vital Signs (Past 12 Hours) Vital Signs Temp Pulse Pulse Resp BP Pulse Ox O2 Del Method 10/27/25 07:35 36.4 C L 82 21 152/96 H 94 Room Air 10/27/25 07:15 67 10/27/25 03:26 36.6 C 69 18 127/79 92 Room Air 10/26/25 23:06 36.6 C 67 17 144/89 H 97 Room Air 10/26/25 23:00 67 Laboratory Results Abnormal lab results 10/27/25 Range/Units 05:21 PT 19.3 H (9.0-12.0) Seconds INR 1.9 H (0.9-1.1)
--- NOTE | 2025-10-27 10:40 | Cardiology Progress Note ---
Date of Service October 27, 2025 Assessment & Plan (1) Paroxysmal atrial fibrillation with rapid ventricular response: (2) HTN (hypertension): (3) Aortic root enlargement: (4) halfway current use of anticoagulant: Plan - Admit for Tikosyn initiation - Stopped sotalol two days prior to Tikosyn. - Start Tikosyn in hospital with EKG monitoring. - Administer metoprolol 50 mg twice daily starting two days before stopping sotalol. - Consider cardioversion if atrial fibrillation remains on Tikosyn - Perform echocardiogram during hospital stay to assess aortic size. - Discussed AV junction ablation with pacemaker if Tikosyn is ineffective. 10/26/2025 1. Paroxysmal atrial fibrillation with prior multiple therapies including ablation and failure or intolerance of amiodarone, sotalol. Beginning Tikosyn load at 250 mcg twice per day. Plan to continue Continue metoprolol succinate 50 mg twice per day Will increase lisinopril to 2.5 mg twice per day for hypertension control 10/27/2025 1. Paroxysmal atrial fibrillation on Tikosyn load initial good tolerance cont inue current therapies as ordered anticipate additional 24 hours on telemetry Admission and Anticipated Discharge Date Admission Date: October 25, 2025 Subjective Patient was seen and personally examined, chart, telemetry reviewed Ambulatory in room in hallway without difficulty no cardiac complaints. Telemetry with brief atrial fibrillation again early this morning but maintaining sinus. Tolerating Tikosyn. QTc 481 with moderate variability. Review of Systems Review of Systems: All systems reviewed & are unremarkable except as noted in Subjective Physical Exam Constitutional: + thin; no acute distress Eyes: PERRL, conjunctivae normal, anicteric sclerae ENMT: external ear and nose normal, oropharynx normal Neck: trachea midline, no thyromegaly Respiratory: normal respiratory effort, lungs clear to auscultation Cardiovascular: Rate/Rhythm: + tachycardic and + irregularly irregular Heart Sounds: normal S1 and normal S2; no murmur Vessels: no JVD Extremities: no edema Gastrointestinal (Abdomen): normal bowel sounds, soft, nontender, no hepatosplenomegaly Musculoskeletal: no cyanosis or clubbing, extremities motor strength 5/5 Results & Data Vital Signs (Past 12 Hours) Vital Signs Temp Pulse Pulse Resp BP Pulse Ox O2 Del Method 10/27/25 07:35 36.4 C L 82 21 152/96 H 94 Room Air 10/27/25 07:15 67 10/27/25 03:26 36.6 C 69 18 127/79 92 Room Air 10/26/25 23:06 36.6 C 67 17 144/89 H 97 Room Air 10/26/25 23:00 67 Laboratory Results Laboratory Results - last 24 hr 10/27/25 05:21 PT 19.3 H INR 1.9 H PG Care Time/CCT Total # of Minutes Spent Total Time Spent with Patient: Total time spent is greater than 50% in coordination of care (as documented) at patient's floor/unit and/or counseling patient: Coding Level of Care Code 03627 SUB INP/OBS CARE 2/35MIN Diagnoses Paroxysmal atrial fibrillation with rapid ventricular response I48.0 HTN (hypertension) I10 Aortic root enlargement 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
--- NOTE | 2025-10-27 21:46 | Electrocardiogram Report ---
Test Reason : Blood Pressure : */* mmHG Vent. Rate : 67 BPM Atrial Rate : 67 BPM P-R Int : 242 ms QRS Dur : 112 ms QT Int : 456 ms P-R-T Axes : 53 -40 1 degrees QTcB Int : 481 ms Sinus rhythm with 1st degree A-V block Left axis deviation Prolonged QT Abnormal ECG When compared with ECG of 26-Oct-2025 11:37, No significant change was found Confirmed by Hadley Leach ([id number]) on 10/27/2025 9:46:40 PM Referred By: Brennan Gardiner Confirmed By: Hadley Leach
--- NOTE | 2025-10-27 21:48 | Electrocardiogram Report ---
Test Reason : Blood Pressure : */* mmHG Vent. Rate : 95 BPM Atrial Rate : * BPM P-R Int : * ms QRS Dur : 114 ms QT Int : 416 ms P-R-T Axes : * -41 31 degrees QTcB Int : 522 ms Sinus rhythm with frequent Premature supraventricular complexes Left axis deviation Prolonged QT Abnormal ECG When compared with ECG of 26-Oct-2025 22:20, Premature supraventricular complexes are now Present Nonspecific T wave abnormality has replaced inverted T waves in Inferior leads Confirmed by Hadley Leach ([id number]) on 10/27/2025 9:48:27 PM Referred By: Brennan Gardiner Confirmed By: Hadley Leach
--- NOTE | 2025-10-27 21:49 | Electrocardiogram Report ---
Test Reason : Blood Pressure : */* mmHG Vent. Rate : 70 BPM Atrial Rate : 70 BPM P-R Int : 250 ms QRS Dur : 114 ms QT Int : 452 ms P-R-T Axes : 47 -34 10 degrees QTcB Int : 488 ms Sinus rhythm with 1st degree A-V block with Premature atrial complexes Left axis deviation Prolonged QT Abnormal ECG When compared with ECG of 26-Oct-2025 22:20, Premature atrial complexes are now Present Confirmed by Hadley Leach ([id number]) on 10/27/2025 9:48:52 PM Referred By: Brennan Gardiner Confirmed By: Hadley Leach
[2025-10-28] MEDS ORDERED: DOFETILIDE 125 MCG CAPSULE PO SCH
[2025-10-28 10:52] LABS: Hematocrit (blood only) 46.3 % (42.0-52.0); Hemoglobin 16.0 g/dL (14.0-18.0); Mean Corpuscular Hemoglobin 34.9 pg (25.0-34.0); Mean Corpuscular Volume 100.9 fL (80.0-100.0); Platelet Count 144 K/uL (130-400); RDW Standard Deviation 46.7 fL (36.4-46.3); Red Blood Count 4.59 M/uL (4.70-6.10); White Blood Count 4.86 K/ul (4.8-10.8)
[2025-10-28 11:05] LABS: Anion Gap 5.0 (3-11); Blood Urea Nitrogen 11.0 mg/dl (6-23); Calcium 9.2 mg/dl (8.6-10.3); Carbon Dioxide 26.0 mmol/L (21-32); Chloride 106.0 mmol/L (98-107); Creatinine Clr Calc Pharmacy 99.7 ml/min; Glucose 124.0 mg/dl (70-99(Fasting)); Potassium 3.7 mmol/L (3.5-5.1); Sodium 137.0 mmol/L (136-145)
[2025-10-28 11:13] LABS: INR 1.9 (0.9-1.1); Prothrombin Time 19.1 Seconds (9.0-12.0)
[2025-10-28 11:22] VITALS: PULSE 68; RESP 20; TEMP 98.1; O2SAT 92
--- NOTE | 2025-10-28 11:37 | Cardiology Progress Note ---
Date of Service October 28, 2025 Assessment & Plan (1) Paroxysmal atrial fibrillation with rapid ventricular response: (2) HTN (hypertension): (3) Aortic root enlargement: (4) [facility] current use of anticoagulant: Plan - Admit for Tikosyn initiation - Stopped sotalol two days prior to Tikosyn. - Start Tikosyn in hospital with EKG monitoring. - Administer metoprolol 50 mg twice daily starting two days before stopping sotalol. - Consider cardioversion if atrial fibrillation remains on Tikosyn - Perform echocardiogram during hospital stay to assess aortic size. - Discussed AV junction ablation with pacemaker if Tikosyn is ineffective. 10/26/2025 1. Paroxysmal atrial fibrillation with prior multiple therapies including ablation and failure or intolerance of amiodarone, sotalol. Beginning Tikosyn load at 250 mcg twice per day. Plan to continue Continue metoprolol succinate 50 mg twice per day Will increase lisinopril to 2.5 mg twice per day for hypertension control 10/27/2025 1. Paroxysmal atrial fibrillation on Tikosyn load initial good tolerance cont inue current therapies as ordered anticipate additional 24 hours on telemetry 10/28/2025 Paroxysmal atrial fibrillation under better control on current therapies with tolerant of Tikosyn load Plan discharge today on current medical therapies [facility] Admission and Anticipated Discharge Date Admission Date: October 25, 2025 Subjective Patient seen and personally examined. No complaints feels well this morning. No sustained arrhythmias on EKG or telemetry EKG this morning sinus rhythm with first-degree AV block left axis deviation. QTc 476 Physical Exam Constitutional: + thin; no acute distress Eyes: PERRL, conjunctivae normal, anicteric sclerae ENMT: external ear and nose normal, oropharynx normal Neck: trachea midline, no thyromegaly Respiratory: normal respiratory effort, lungs clear to auscultation Cardiovascular: Rate/Rhythm: + tachycardic and + irregularly irregular Heart Sounds: normal S1 and normal S2; no murmur Vessels: no JVD Extremities: no edema Gastrointestinal (Abdomen): normal bowel sounds, soft, nontender, no hepatosplenomegaly Musculoskeletal: no cyanosis or clubbing, extremities motor strength 5/5 Results & Data Vital Signs (Past 12 Hours) Vital Signs Temp Pulse Pulse Pulse Resp BP BP 10/28/25 11:21 36.7 C 68 20 145/90 H 10/28/25 09:02 78 16 134/78 10/28/25 07:20 71 10/28/25 07:02 36.6 C 77 18 104/69 10/28/25 03:38 36.4 C L 90 16 147/90 H Pulse Ox O2 Del Method 10/28/25 11:21 92 Room Air 10/28/25 09:02 93 Room Air 10/28/25 07:20 10/28/25 07:02 93 Room Air 10/28/25 03:38 93 Room Air PG Care Time/CCT Total # of Minutes Spent Total Time Spent with Patient: Total time spent is greater than 50% in coordination of care (as documented) at patient's floor/unit and/or counseling patient: Coding Level of Care Code 37672 SUB INP/OBS CARE 2/35MIN Diagnoses Paroxysmal atrial fibrillation with rapid ventricular response I48.0 HTN (hypertension) I10 Aortic root enlargement I77.89 [facility] current use of anticoagulant Z79.01
--- NOTE | 2025-10-28 11:50 | Discharge Summary ---
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 Patient follows with [facility] cardiology. He has known recurrent symptomatic atrial fibrillation. He has had 2 ablations in the past. His most recent ablation was in August 2025 with unfortunate recurrence of A-fib shortly after procedure. He previously has been on sotalol without improvement of symptoms. He most recently saw cardiology in clinic on 10/17/25 and it was discussed about admitting patient for Tikosyn initiation consider cardioversion post Tikosyn load and AV junction ablation with pacemaker if Tikosyn fails. His sotalol was stopped 2 days prior to admission and he was started on metoprolol tartrate. Hx obtained from external chart review and at bedside. Currently he feels okay. He feels himself flip in and out of atrial fib. When he is in afib he gets SOB, easily fatigued and unable to perform routine tasks. He denies f/c/s, chest pain, cough, uri sx, n/v/d, abd pain or change in bowel or urinary habits. He previously was on sotalol. He stopped sotalol 2 day ago. He was placed on metoprolol succ 50mg bid while off sotatol. He did not take his morning metoprolol dose as instructed by Dr. Gardiner. Admission Exam Per Admitting Provider Constitutional: WD/WN, vitals as above, NAD, sitting up in bed, pleasant, conversing easily Head: Normocephalic, Atraumatic Eyes: conjunctivae normal, anicteric sclerae ENMT: external ear and nose normal, oropharynx normal Neck: trachea midline, no thyromegaly normal visual inspection Respiratory: CTAB, no W/R/R, normal inspection, no accessory muscle use Cardiovascular: RRR, pt flipping in and out of afib, currently NSR, no murmur, no edema Chest: normal inspection of chest Abdomen: S, NT, ND, +BS x 4 Musculoskeletal: no cyanosis or clubbing, extremities AROM x 4 Skin: no rashes, warm and dry normal turgor Neurologic: no face palsy, no dysarthria CN's II-XI intact bilaterally and moves all extremities Psychiatric: A+Ox3, euthymic affect Principal Diagnosis Atrial fibrillation Hypertension Discharge Exam Constitutional + well hydrated; no acute distress Eyes PERRL, conjunctivae normal, anicteric sclerae ENMT external ear and nose normal, oropharynx normal Respiratory normal respiratory effort, lungs clear to auscultation Cardiovascular Rate/Rhythm: regular rate and regular rhythm Gastrointestinal (Abdomen) normal bowel sounds, soft, nontender, no hepatosplenomegaly Musculoskeletal No pedal edema Neurologic PERRL, EOMI, accommodation nl, no face palsy, no dysarthria Psychiatric A+Ox3, euthymic affect Discharge Data Allergies Allergy/AdvReac Type Severity Reaction Status Date / Time prednisone Allergy Severe Shortness Verified 09/13/25 08:57 of breath, heart racing Consultations 10/25/25 09:32 Consult Cardiology Routine 10/25/25 09:53 ED Decision to Admit Stat Hospital Course (1) Atrial fibrillation with rapid ventricular response: (2) HTN (hypertension): (3) group home current use of anticoagulant: (4) Sleep apnea: (5) Peripheral neuropathy: (6) Prolonged Q-T interval on ECG: (7) Paroxysmal atrial fibrillation with rapid ventricular response: (8) Daily consumption of alcohol: Plan 80-year-old maleWho has significant past medical history of symptomatic PAF status post PVI ablation in September 2016, recurrent PAF/flutter status post catheter ablation on August 23, 2025, HTN, DEVEN unable to tolerate CPAP, 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 Cardiology evaluated and initiated Tikosyn Sotalol was stopped two days prior to Tikosyn Tolerating Tikosyn 250mg BID well Cardiology will arrange follow up within the week to monitor EKG and continue management GENETICS PHYSICIAN lisinopril increased to 2.5mg BID per Cardiology for better BP control Continue GENETICS PHYSICIAN ASA Continue warfarin. INR 1.9 today. Advised to follow up Anticoagulation clinic Total Time Total Time Spent Total Time Spent (In Minutes): 35 Total Time Includes: Examination of the Patient, Discharge Planning, Medication Reconciliation and Communication With Other Providers Discharge Plan Discharge Items Patient Disposition: Home - Self-Care Reason For Visit: AFIB RVR Discharge Diagnosis: Atrial fibrillation Hypertension Condition on Discharge: Fair Activity: Resume your previous activity Non-emergency contact: Primary Care Provider and Stage Setting Painter Apprentice Call non-emergency contact if: you have any medication questions Follow-up/Referrals: Tevin Corcoran MD [Primary Care Provider] - 11/04/25 10:40 am (Date & Time 11/04/2025 10:40 AM Provider: Tevin Corcoran MD [facility] ) Brennan Gardiner MD [Physician] - (The office will call you with a follow up appointment.) Diet: Heart Healthy Addtl Attending Provider Instructions: Mr Day You were hospitalized and managed for the above listed diagnoses. You were started on Tikosyn or Dofetilide for your AFib. Your lisinopril was increased to 2.5mg twice a day Please ensure follow up with your Primary Doctor and Cardiology Please ensure follow up with Anticoagulation clinic. It was a pleasure taking care of you Pending Studies at Discharge: No Stand-Alone Forms: My [facility] [place], Smoking Cessation Medications and DC Order Prescriptions: New dofetilide 125 mcg Capsule 250 mcg PO Q12 30 Days Qty: 120 0RF Continued aspirin 81 mg Tablet,Delayed Release (Dr/Ec) 81 mg PO QAM Qty: 0 multivitamin Tablet 1 tab PO QDL Qty: 0 warfarin 2.5 mg Tablet 2.5 mg PO FR@1600 Patient Comments: TAKES 2.5 MG ON friday ONLY, THEN 3.75 MG ALL OTHER DAYS; DIRECTED BY ANTICOAG CLINIC gabapentin 300 mg capsule 300 mg PO TID warfarin 7.5 mg tablet 3.75 mg PO SUMOTUWETHSA@1600 metoprolol succinate 25 mg tablet extended release 24 hr 50 mg PO BID magnesium oxide 400 mg magnesium Capsule 400 mg PO DAILY@1200 Changed lisinopril 2.5 mg Tablet 2.5 mg PO BID Qty: 60 0RF Discharge Orders: Discharge Order (Routine); Ordered 10/28/25 Ordered By: Charisma Felton Admission Data Admit Date/Time: 10/25/25 09:02 Attending Provider: Charisma Felton I. Admit Provider: Wesley Blackwood Primary Care Provider: Tevin Corcoran Other Providers: Wesley Blackwood; Brennan Gardiner; Hermes Nicole Other Interventions: Discharge Summary Assessment (RN) Last Done: 10/28/25 11:55
[2025-10-28 11:58] VITALS: BP 104/69
[2025-10-28] MEDS ORDERED: WARFARIN SOD 2.5 MG TAB PO SCH (16:00)
--- NOTE | 2025-10-28 19:08 | Electrocardiogram Report ---
Test Reason : Blood Pressure : */* mmHG Vent. Rate : 68 BPM Atrial Rate : 68 BPM P-R Int : 236 ms QRS Dur : 114 ms QT Int : 448 ms P-R-T Axes : 11 -35 36 degrees QTcB Int : 476 ms Sinus rhythm with 1st degree A-V block Left axis deviation Abnormal ECG When compared with ECG of 27-Oct-2025 22:32, QT has shortened Confirmed by Hadley Leach ([id number]) on 10/28/2025 7:08:38 PM Referred By: Brennan Gardiner Confirmed By: Hadley Leach
--- NOTE | 2025-10-28 19:08 | Electrocardiogram Report ---
Test Reason : Blood Pressure : */* mmHG Vent. Rate : 70 BPM Atrial Rate : 70 BPM P-R Int : 248 ms QRS Dur : 112 ms QT Int : 468 ms P-R-T Axes : 55 -42 21 degrees QTcB Int : 505 ms Sinus rhythm with 1st degree A-V block Left axis deviation Prolonged QT Abnormal ECG When compared with ECG of 27-Oct-2025 11:09, Premature atrial complexes are no longer Present Confirmed by Hadley Leach ([id number]) on 10/28/2025 7:08:16 PM Referred By: Brennan Gardiner Confirmed By: Hadley Leach
== END 2025-10-28 13:20 | disposition home or self-care (01) | DRG 310 ==
LOC: ED 07:52 → SUATTDRO 09:02 → 2S 09:02